=== PATIENT | female | born 1985 | race Caucasian/White ===

== ENCOUNTER 2020-09-13 23:26 | Emergency (ER) | payer OTHER ==
[~2020-09-13] VITALS: Ht 165.1 cm; Wt 93.0 kg
[2020-09-14] MEDS ORDERED: PREDNISONE50 MG PO (00:19)
[2020-09-14] MEDS ORDERED: VIBRAMYCIN 100100 M2 PO (00:19)
[2020-09-14 00:28] VITALS: BP 144/86
== END 2020-09-14 00:28 | disposition home or self-care (01) ==
LOC: M.ERS 23:26
DX: T63.481A Toxic effect of venom of other arthropod, accidental (unintentional), initial encounter (principal); M79.672 Pain in left foot; R22.42 Localized swelling, mass and lump, left lower limb; Z88.1 Allergy status to other antibiotic agents; Z88.0 Allergy status to penicillin; Y92.89 Other specified places as the place of occurrence of the external cause

== ENCOUNTER 2021-01-17 04:08 | Emergency (ER) | payer OTHER ==
[~2021-01-17] VITALS: Ht 165.1 cm; Wt 93.9 kg
[~2021-01-17 04:08] MED LIST: PREDNISONE50 MG PO; VIBRAMYCIN 100100 M2 PO
[2021-01-17 05:06] LABS: URINE BILIRUBIN NEGATIVE (Negative); URINE BLOOD 3+ (Negative); URINE CLARITY CLEAR; URINE COLOR YELLOW; URINE GLUCOSE-RANDOM NEGATIVE (Negative); URINE KETONES NEGATIVE (Negative); URINE NITRITE-REFLEX NEGATIVE (Negative); URINE PROTEIN TRACE (Negative); URINE SPECIFIC GRAVITY >= 1.030 (1.005-1.030); URINE UROBILINOGEN 0.2 E.U./dl (0.2-1.0)
[2021-01-17 05:12] LABS: AMP/METHAMP Negative (Negative); BARBITURATES Negative (Negative); BENZODIAZEPINES Negative (Negative); COCAINE Negative (Negative); METHADONE Negative (Negative); OPIATES Negative (Negative); PCP Negative (Negative); THC Negative (Negative)
[2021-01-17 05:18] LABS: URINE LEUKOCYTES-REFLEX 2+ (Negative)
[2021-01-17 05:52] LABS: HEMATOCRIT 36.1 % (37.0-47.0); MCH 27.8 pg (26.0-34.0); MCHC 33.2 g/dL (28.0-37.0); MCV 83.7 fL (80.0-100.0); MPV 8.5 fl. (7.2-11.1); RBC 4.31 mil/uL (4.20-5.00); RDW-CV 13.8 % (10.5-14.5); WBC 5.6 thou/uL (4.0-11.0)
[2021-01-17 05:57] LABS: CALCIUM 8.6 mg/dL (8.5-10.1); CREATININE 0.7 mg/dL (0.6-1.3); POTASSIUM 3.7 mmol/L (3.5-5.1)
[2021-01-17 06:01] LABS: ALBUMIN 3.3 g/dL (3.4-5.0); TOTAL BILIRUBIN 0.3 mg/dL (<0.1-1.0); TOTAL PROTEIN 7.5 g/dL (6.4-8.2)
[2021-01-17] MEDS ORDERED: TORADOL 10 MG T10 MG PO (06:42)
[2021-01-17] MEDS ORDERED: ZOFRAN ODT4 MG PO (06:42)
[2021-01-17] MEDS ORDERED: NORCO5 PO (06:42)
[2021-01-17 06:46] LABS: CASTS None Seen /LPF (None Seen); MUCUS >6 Heavy strn/LPF (None Seen); SQUAMOUS >10 Many /LPF (0-3)
[2021-01-17 06:47] LABS: CRYSTALS None Seen /LPF (None Seen); RENAL EPITHELIAL CELLS 0-3 Few /LPF (None Seen); URINE RBC >20 Many /HPF (0-2); URINE WBC-REFLEX 6-15 Few /HPF (0-5)
[2021-01-17] MEDS ORDERED: PERCOCET 5-3251 EACH PO (06:48)
[2021-01-17 07:04] VITALS: BP 134/72
== END 2021-01-17 07:05 | disposition home or self-care (01) ==
LOC: M.ERS 04:08
PROVIDERS: Personal Emergency Response Attendant
DX: R10.11 Right upper quadrant pain (principal); R31.9 Hematuria, unspecified; Z88.0 Allergy status to penicillin